=== PATIENT | female | born 1950 | race Caucasian/White ===

== ENCOUNTER → 2017-03-16 12:42 | Outpatient (CLI) | payer MEDICARE ==
--- NOTE | ~2017-03-16 | EC ---
PATIENT:FAUZIA GALLO DATE OF SERVICE: 03/16/17 SEX: F MEDICAL RECORD: [id number] DATE OF : [birth year] LOCATION:[facility] AGE OF PATIENT: 66 ADMISSION DATE: 03/16/17 REFERRING PHYSICIAN: INTERPRETING PHYSICIAN: JAIME DIAZ MD ECHOCARDIOGRAM REPORT ECHO CHARGES 4 ECHO COMPLETE CLINICAL DIAGNOSIS: CENTRAL RETIANL OCCULSION LEFT EYE/ ASSESS FOR CLOTS HX OF HTN ECHOCARDIOGRAPHIC MEASUREMENTS (adult normal given) AC root (d.<3.7cm) 3.2 LV Septum d (<1.2 cm> 1.2 Valve Excursion 2.2 LV Septum (systole) 1.3 Left Atria (s.<4.0cm> 3.6 LVPW d(<1.2cm) 1.4 RV (d.<2.3cm) 3.0 LVPW (sytole) 1.6 LV diastole(<5.6CM) 5.8 MV E-F(>70mm/sec) LV systole 4.3 LVOT Diameter 1.8 MV exc.(>10mm) 1.5 Est.ejection fraction (50-75%) Pericardial Effusion N DOPPLER: LVIT A 129 E 90.0 LA RVSP 38 LVOT 96 AOP1/2T 762 Asc. Ao 122 RVOT 52 RA PA 83 AV Gradient Peak 6.0 AV Mean 3.14 AV Area 2.0 MV Gradient Peak 7.26 MV Mean 2.76 MV Area COMMENTS: Loan Associate: Abhishek KUO Intensive Care Unit Nurse:1 Dr. Diaz TAPE# PACS TWO-DIMENSIONAL ECHOCARDIOGRAM WITH DOPPLER 1. Left ventricular chamber size is within normal limits. Left ventricular systolic function is normal. Overall ejection fraction is estimated at 55 percent. 2. Left atrium, right atrium, and right ventricular chamber sizes are within normal limits. 3. Valvular structures have normal structure and motion. 4. Doppler interrogation reveals mild mitral regurgitation, mild tricuspid regurgitation; no other valvular insufficiency or stenosis. Pulmonary artery ECHOCARDIOGRAM REPORT [id number] FAUZIA GALLO systolic pressure is preserved at 38 millimeters of mercury. 5. No evidence of pericardial effusion or left ventricular thrombus. JAIME DIAZ MD CC: [id number] DICTATION DATE: 03/17/172052 PROGRAM STRATEGIST: JDB 03/17/172050 DEP CLI 03/16/17 [facility] [address] [facility] [place] [id number]
== END | disposition home or self-care (01) ==
LOC: D.ECHO 12:42 → D.US 14:00
DX: H34.8120 Central retinal vein occlusion, left eye, with macular edema (principal); R60.0 Localized edema

== ENCOUNTER → 2017-03-24 08:08 | Outpatient (CLI) | payer MEDICARE | END | disposition home or self-care (01) | LOC: D.CT 08:08 | DX: I65.23 Occlusion and stenosis of bilateral carotid arteries (principal) ==

== ENCOUNTER 2017-11-21 15:01 | Inpatient (IN) | payer MEDICARE ==
[~2017-11-21] VITALS: Ht 160 cm; Wt 64.0 kg
[2017-11-21 16:36] LABS: BASOPHILS 0.1 % (0-2); EOSINOPHILS 0.4 % (0-7); HEMATOCRIT 40.7 % (36.0-48.0); HEMOGLOBIN 14.8 g/dL (12-16); IMMATURE GRANULOCYTES 0.4 % (0-5); LYMPHOCYTES 17.6 % (15-50); MCH 27.2 pg (26.0-34.0); MCHC 36.4 g/dL (31.0-37.0); MCV 74.8 fL (80.0-100.0); MEAN PLATELET VOLUME 10.3 fL (7.4-10.4); MONOCYTES 6.3 % (2-11); NEUTROPHILS 75.2 % (40-80); PLATELET COUNT 244 10x3/uL (130-400); RBC 5.44 10x6/uL (4.00-5.40); RDW 13.9 % (11.5-14.5); WBC 9.8 10x3/uL (4.8-10.8)
[2017-11-21 16:55] LABS: APPEARANCE CLEAR (CLEAR); BILIRUBIN NEGATIVE (NEGATIVE); COLOR YELLOW (YELLOW); GLUCOSE NEGATIVE (NEGATIVE); KETONE MODERATE mg/dL (NEGATIVE); NITRITE NEGATIVE (NEGATIVE); PROTEIN NEGATIVE (NEGATIVE); UROBILINOGEN NORMAL (NORMAL)
[2017-11-21 16:57] LABS: BACTERIA MANY /hpf (NONE SEEN)
[2017-11-21 16:58] LABS: RED CELLS - URINE OCC /hpf (0-5); WHITE CELLS - URINE 0-5 /hpf (0-5)
[2017-11-21 16:59] LABS: EPITHELIAL CELLS OCC /hpf (0-5)
[2017-11-21 17:08] LABS: INR 1.01 (0.85-1.17); PROTIME 12.9 SECONDS (11.6-15.0)
[2017-11-21 17:55] LABS: ALKALINE PHOSPHATASE 135 U/L (46-116); ALT (SGPT) 17 U/L (10-68); BILIRUBIN - TOTAL 0.73 mg/dL (0.2-1.3); CALCIUM 9.6 mg/dL (8.5-10.1); CARBON DIOXIDE 23.3 mmol/L (21.0-32.0); CREATINE KINASE 162 UL (21-215); CREATININE - SERUM 1.1 mg/dL (0.6-1.3); GLUCOSE 124 mg/dL (74-106); LIPASE 119 U/L (73-393); POTASSIUM - SERUM 4.1 mmol/L (3.5-5.1); PRO BNP 271 pg/mL (0-125); PROTEIN - SERUM 7.7 g/dL (6.4-8.2); UREA NITROGEN 25 mg/dL (7-18); eGFR NON AFRICAN AMERICAN 52 mL/min (90-120)
[2017-11-21 18:06] LABS: CALC OSMOLALITY 237 mosm/kg (275-300); CHLORIDE - SERUM 80 mmol/L (98-107); SODIUM 115 mmol/L (136-145); TROPONIN-I < 0.017 ng/mL (0.000-0.060)
[2017-11-21] MEDS ORDERED: OMNICEF300 MG PO (22:56)
[2017-11-21] MEDS ORDERED: CHERATUSSIN AC473 ML PO (22:57)
[2017-11-21] MEDS ORDERED: PREDNISONE10 MG PO (22:57)
[2017-11-21] MEDS ORDERED: DOXYCYCLINE HY100 M2 PO (22:57)
[2017-11-21] MEDS ORDERED: FOLIC ACID1 MG PO (22:58)
[2017-11-21] MEDS ORDERED: BUTALB-APAP-CA1 EACH PO (22:58)
[2017-11-21] MEDS ORDERED: XANAX1 MG PO (22:58)
[2017-11-21] MEDS ORDERED: TRAZODONE HCL50 MG PO (22:58)
[2017-11-21] MEDS ORDERED: TRIAMTERENE-HCT1 TA1 PO (22:58)
[2017-11-21] MEDS ORDERED: TYLENOL #4 W/CO1 TAB PO (22:59)
[2017-11-21] MEDS ORDERED: VITAMIN B-1000 MCG/M IM (22:59)
[2017-11-22] VITALS (7 sets, daily range): BP systolic 123–151; BP diastolic 63–73; Ht 160 cm; Wt 64.0 kg
[2017-11-22 04:28] LABS: BASOPHILS 0.3 % (0-2); EOSINOPHILS 2.1 % (0-7); HEMATOCRIT 41.5 % (36.0-48.0); HEMOGLOBIN 14.5 g/dL (12-16); IMMATURE GRANULOCYTES 0.6 % (0-5); LYMPHOCYTES 25.1 % (15-50); MCH 26.4 pg (26.0-34.0); MCHC 34.9 g/dL (31.0-37.0); MCV 75.6 fL (80.0-100.0); MEAN PLATELET VOLUME 10.8 fL (7.4-10.4); MONOCYTES 11.1 % (2-11); NEUTROPHILS 60.8 % (40-80); PLATELET COUNT 231 10x3/uL (130-400); RBC 5.49 10x6/uL (4.00-5.40); RDW 13.8 % (11.5-14.5); WBC 9.5 10x3/uL (4.8-10.8)
[2017-11-22 05:48] LABS: ANION GAP 17.5 mmol/L (8-16); CALCIUM 8.7 mg/dL (8.5-10.1); CARBON DIOXIDE 22.3 mmol/L (21.0-32.0); POTASSIUM - SERUM 3.8 mmol/L (3.5-5.1)
[2017-11-22 14:35] LABS: ANION GAP 14.6 mmol/L (8-16); CALCIUM 8.7 mg/dL (8.5-10.1); CARBON DIOXIDE 23.3 mmol/L (21.0-32.0); CREATININE - SERUM 1.2 mg/dL (0.6-1.3); POTASSIUM - SERUM 3.9 mmol/L (3.5-5.1)
[2017-11-23 04:00] VITALS: BP 135/64
[2017-11-23 06:21] LABS: BASOPHILS 0.9 % (0-2); EOSINOPHILS 2.3 % (0-7); HEMATOCRIT 42.4 % (36.0-48.0); HEMOGLOBIN 14.4 g/dL (12-16); IMMATURE GRANULOCYTES 0.4 % (0-5); LYMPHOCYTES 28.3 % (15-50); MCH 26.6 pg (26.0-34.0); MEAN PLATELET VOLUME 11.1 fL (7.4-10.4); MONOCYTES 10.7 % (2-11); NEUTROPHILS 57.4 % (40-80); PLATELET COUNT 249 10x3/uL (130-400); RBC 5.41 10x6/uL (4.00-5.40); RDW 14.6 % (11.5-14.5); WBC 9.4 10x3/uL (4.8-10.8)
[2017-11-23 06:23] LABS: MCV 78.4 fL (80.0-100.0)
[2017-11-23 06:43] LABS: ALBUMIN 3.9 g/dL (3.4-5.0); BILIRUBIN - TOTAL 0.4 mg/dL (0.2-1.3); CALCIUM 8.7 mg/dL (8.5-10.1); CARBON DIOXIDE 26.8 mmol/L (21.0-32.0); CREATININE - SERUM 1.1 mg/dL (0.6-1.3); MAGNESIUM - SERUM 2.3 mg/dL (1.8-2.4); PHOSPHOROUS 3.9 mg/dL (2.5-4.9); POTASSIUM - SERUM 3.8 mmol/L (3.5-5.1); PROTEIN - SERUM 7.7 g/dL (6.4-8.2)
[2017-11-23] MEDS ORDERED: TOPROL XL50 MG PO (07:21)
[2017-11-23] MEDS ORDERED: NORVASC10 MG PO (07:21)
[2017-11-23] MEDS ORDERED: BENAZEPRIL HCL10 MG PO (07:21)
[2017-11-23] MEDS ORDERED: EFFEXOR XR75 MG PO (07:22)
[2017-11-23] MEDS ORDERED: CEFUROXIME250 MG PO (07:22)
== END 2017-11-23 09:16 | disposition home or self-care (01) | DRG 640 ==
LOC: D.ER 15:01 → D.M2 22:47
PROVIDERS: Emergency Medicine; Family Medicine; Nurse Practitioner Family
DX: E87.1 Hypo-osmolality and hyponatremia (principal); G93.41 Metabolic encephalopathy; T50.2X5A Adverse effect of carbonic-anhydrase inhibitors, benzothiadiazides and other diuretics, initial encounter; T50.1X5A Adverse effect of loop [high-ceiling] diuretics, initial encounter; I10 Essential (primary) hypertension

== ENCOUNTER → 2017-12-20 10:05 | Outpatient (CLI) | payer MEDICARE ==
[2017-11-22 07:25] VITALS: BMI 26.6
[~2017-12-20 10:05] MED LIST: BENAZEPRIL HCL10 MG PO; BUTALB-APAP-CA1 EACH PO; CEFUROXIME250 MG PO; CHERATUSSIN AC473 ML PO; DOXYCYCLINE HY100 M2 PO; EFFEXOR XR75 MG PO; FOLIC ACID1 MG PO; NORVASC10 MG PO; OMNICEF300 MG PO; PREDNISONE10 MG PO; TOPROL XL50 MG PO; TRAZODONE HCL50 MG PO; TRIAMTERENE-HCT1 TA1 PO; TYLENOL #4 W/CO1 TAB PO; VITAMIN B-1000 MCG/M IM; XANAX1 MG PO
== END | disposition home or self-care (01) ==
LOC: D.MRI 10:05
DX: M54.5 Low back pain (principal)